=== PATIENT | female | born 1945 | race Caucasian/White ===

== ENCOUNTER 2016-09-18 11:23 | Observation (INO) | payer MEDICARE ==
--- NOTE | ~2016-09-18 | CR72 ---
[facility] A Service of [facility] RADIOLOGY TEXT RESULTS PATIENT: PHUONG PORRAS LOCATION: C3A 328-01 : 44 UNIT #: [id number] AGE: [address]: Aileen Blevins MD SEX: F ORDER DR: [id number] [address] [address] [id number] E MR#: [id number] Acc #: [id number] NAME: PHUONG PORRAS : 1945 SEX: F STUDY DATE/TIME: 09/18/2016 11:43 UNIT: SED ROOM: STUDY DESCRIPTION: CR Chest Single View Portable Attending Physician: Severiano Art M.D. Ordering Physician: Severiano Art M.D. Primary Care Physician: Tonio Sullivan M.D. MEDICAL IMAGING REPORT This report is preliminary unless electronic signature is present. EXAM Portable chest radiograph INDICATIONS Shortness of breath for 2 weeks. Patient has been a smoker for 45 years. FINDINGS Cardiomegaly is identified although there is no evidence of vascular congestion. There are background changes of COPD and with some bibasilar scarring. No pneumothorax or definite pleural effusion is seen. No definite acute infiltrates are identified Dictated by... Lindsey Xiao M.D. THIS IS AN ELECTRONICALLY VERIFIED REPORT Lindsey Xiao M.D. at 09/19/2016 12:58 PM AFF/rnr TD: 09/18/2016 13:45 JOB #: [id number] MEDICAL IMAGING REPORT Page 1 of 1
--- NOTE | ~2016-09-18 | CO ---
Unit #: [id number] #: [id number] Patient: PHUONG PORRAS [id number] [address] [place], [place] [address] [id number] I MR#: [id number] NAME: PHUONG PORRAS ROOM: 328 Age: 71 Sex: F Admission Date: 09/18/2016 : 1945 Attending Physician: Aileen Blevins M.D. Primary Care Physician: Tonio Sullivan M.D. CONSULTATION REPORT REASON FOR CONSULTATION Dyspnea on exertion. HISTORY OF PRESENT ILLNESS This is a 71-year-old white female, who presented to the emergency room with a complaint of shortness of breath that has been on exertion for a while, but worsened in the last two weeks. She denies paroxysmal nocturnal dyspnea, orthopnea, or leg edema. She has no symptoms of angina, palpitations, or dizziness. In the emergency room, she was hypertensive with blood pressure of 209/88 mmHg. She has been told to have hypertension, but was not on medications. She gives a history of myocardial infarction 25 years ago and states she underwent a cardiac catheterization and was told she had 30% blockage. She had a stress test approximately a year ago at [facility], which she says was normal. She saw Dr. Goff at that time and he said no further workup was needed. Troponin was negative with no acute ischemic changes on EKG. There was a mild elevation of D-dimer; however, CT angio of the chest showed no pulmonary embolism. There was an incidental finding of a left thyroid nodule. PAST MEDICAL HISTORY 1. The patient reported myocardial infarction 25 years ago with history of cardiac catheterization. Told to have 30% blockage. No details available. 2. Stress test a year ago at [facility]. Told negative. No details available. 3. Hypertension. 4. Hyperlipidemia. 5. Hypothyroidism. 6. Former smoker. 7. Obesity. PAST SURGICAL HISTORY Right lower extremity surgery with herbert placement secondary to fracture. SOCIAL HISTORY The patient lives at home alone. She previously smoked a pack and a half of cigarettes daily since age 12, but stopped a year ago. She denies illicit drug or alcohol use. Activity level is fair. FAMILY HISTORY Negative for coronary artery disease. Unit #: [id number] #: [id number] Patient: PHUONG PORRAS ALLERGIES No known drug allergies. HOME MEDICATIONS Levothyroxine 88 mcg daily. REVIEW OF SYSTEMS CONSTITUTIONAL: Negative for fever or chills. Reports no weight gain or weight loss. HEENT: No headache. No vision change or difficulty with swallowing. No dizziness. CARDIOVASCULAR: Has no symptoms of angina. Unaware of palpitations. No paroxysmal nocturnal dyspnea or orthopnea. Denies syncope or near syncope. RESPIRATORY: Positive for dyspnea on exertion. Denies cough or hemoptysis. GASTROINTESTINAL: No abdominal pain, nausea, or vomiting. No constipation. No melena. EXTREMITIES: Negative for lower extremity edema. PHYSICAL EXAMINATION VITAL SIGNS: Blood pressure 165/56, heart rate 81, temperature 97.1. GENERAL: This is a 71-year-old obese white female, who is in no acute respiratory distress. NEUROLOGIC: She is awake, alert, and oriented without focal weaknesses. NECK: Trachea is midline. No thyromegaly or lymphadenopathy. No jugular venous distention. HEART: S1 and S2. Heart sounds are normal. No murmurs. No rubs. No clicks. Regular rate and rhythm. LUNGS: Diminished breath sounds without rales, rhonchi, or wheezing. ABDOMEN: Soft and obese with bowel sounds are present. No masses appreciated. EXTREMITIES: Without leg edema. SKIN: Warm and dry. DIAGNOSTIC STUDIES LABORATORY RESULTS: Glucose 94, BUN 16, creatinine 0.7. Sodium 140, potassium 4.3. BNP 61. Troponin less than 0.05 x2 and less than 0.03. Cholesterol 191, triglycerides 56, LDL 123, HDL 57, TSH 1.14. D-dimer 254. White count is 10.0, hemoglobin 13.7, hematocrit 41.2, platelet count is 351. IMAGING STUDIES: Chest x-ray shows background changes of COPD. There is some bibasilar scarring. CT angio of the chest reveals a 3.0 x 2.6 cm low-density nodule in the left superior mediastinum noted to arise from the lower pole of the atrophic thyroid gland. No pulmonary embolism. Lungs are clear. CARDIOVASCULAR STUDIES: EKG; normal sinus rhythm, rate of 79 beats per minute. Otherwise, normal. IMPRESSION 1. Dyspnea on exertion, questionable etiology. 2. Uncontrolled hypertension. 3. The patient reported myocardial infarction with nonobstructive coronary artery disease 25 years ago. No details available. Recent stress test normal according to the patient. 4. Obesity. Unit #: [id number] #: [id number] Patient: PHUONG PORRAS 5. Hypothyroidism. PLAN 1. Cardiology was consulted for dyspnea on exertion. There was no cardiac cause of dyspnea. Dyspnea could be from uncontrolled hypertension. 2. We will start the patient on furosemide in addition to Norvasc for blood pressure control. 3. Obtain 2D echocardiogram to evaluate left ventricular systolic function. 4. Proceed with Lexiscan Cardiolite stress test to rule out coronary artery disease. Thank you for allowing us to assist in this patient's care. Dictated by... Joe UptonRMargarito for Tian Linton/luiza TD: 09/20/2016 03:00 JOB #: [id number] CONSULTATION REPORT Page 1 of 1 X Srikanth Osei APRN X CONSULTATION REPORT
--- NOTE | ~2016-09-18 | ST ---
Unit #: [id number] #: [id number] Patient: PHUONG PORRAS [id number] [address] [address] [id number] I MR#: [id number] NAME: PHUONG PORRAS : 1945 SEX: F STUDY DATE/TIME: UNIT: C3A PCU ROOM: [facility] STUDY DESCRIPTION: Stress Test Attending Physician: Aileen Blevins M.D. Primary Care Physician: Con Sullivan CARDIOLOGY REPORT EXAM Lexiscan Cardiolite Stress Test DESCRIPTION Baseline EKG - normal sinus rhythm with left atrial abnormality, possible Q waves in V1-2, slow R wave progression. Lexiscan was a four minute test with Lexiscan being injected within the first minute followed by Cardiolite. EKG during the test was equivocal to baseline. No acute ischemic changes. The patient had no complaints of chest pain, palpitations or dizziness. Had increased shortness of breath and fatigueness that resolved in recovery phase. Maximum heart rate response was 86 beats per minute with a maximum blood pressure response of 185/79 mmHg. It was noted at the end of recovery phase the patient's blood pressure was 167/70 mmHg. Cardiolite was injected after Lexiscan within the first minute of the test. Radionuclide test pending. Please correlate with nuclear images. Dictated by... Akanksha Gallardo A.P.R.N. for Tian Linton/juan jose TD: 09/19/2016 13:18 JOB #: [id number] Unit #: [id number] #: [id number] Patient: PHUONG PORRAS CARDIOLOGY REPORT Page 1 of 1 X Akanksha Gallardo APRN CARDIOLOGY REPORT
--- NOTE | ~2016-09-18 | HP ---
Unit #: [id number] #: [id number] Patient: PHUONG PORRAS [id number] [address] [place], [place] [address] [id number] I MR#: [id number] NAME: PHUONG PORRAS ROOM: 328 Age: 71 Sex: F Admission Date: 09/18/2016 : 1945 Attending Physician: Radhika Chou M.D. Primary Care Physician: Con Sullivan HISTORY AND PHYSICAL CHIEF COMPLAINT Dyspnea on exertion, decreased energy, accelerated hypertension. HISTORY OF PRESENT ILLNESS This pleasant 71-year-old female with hypertension, hypothyroidism, hyperlipidemia, was transferred from [facility] Emergency Department for dyspnea on exertion. The patient states that she has been short of breath for some time but this worsened over the past two weeks. Over the past two weeks, she notes increasing dyspnea on exertion with decreasing energy and perhaps some exertional lightheadedness. Denies chest discomfort, cough, wheezing with the above. She presented to [facility] Emergency Department today where her workup was fairly unremarkable. She states that she had cardiac testing performed about a year ago at [facility] which was unremarkable. She was a smoker up to 1-1/2 packs per day of tobacco from age 12 until last year when she stopped smoking. PAST MEDICAL HISTORY 1. Hypertension. 2. Hypothyroidism. 3. Hyperlipidemia. 4. Reported GA 25 years ago although patient believes there is only minor stenosis on cardiac catheterization. Again, she underwent cardiac testing at [facility] which was reportedly negative. ALLERGIES None. HOME MEDICATIONS 1. Synthroid 0.088 mg daily. 2. Patient was taking lisinopril 40 mg daily but had side effects along with a second blood pressure medicine and cholesterol medicine which she has since discontinued. SOCIAL HISTORY The patient lives alone. She smoked 1-1/2 packs per day from age 12 until a year ago when she stopped smoking. Does not drink alcohol. FAMILY HISTORY Possible CAD. REVIEW OF SYSTEMS Unit #: [id number] #: [id number] Patient: PHUONG PORRAS Notable for hypertension, hypothyroidism, hyperlipidemia, possible previous GA, exertional weakness and shortness of breath. Intermittent difficulty swallowing, umbilical hernia. All other systems were reviewed and are negative. PHYSICAL EXAMINATION VITAL SIGNS: Temperature 97.6, pulse 80, respirations 16, blood pressure 182/72, O2 saturation 97% on room air here. GENERAL: Pleasant, obese 71-year-old female currently in no acute distress. HEENT: Eyes PERRLA. Extraocular muscles are intact. Pharynx benign. NECK: Supple without adenopathy, thyromegaly or carotid bruits. No JVD. CHEST: Diminished breath sounds but clear. HEART: Normal S1, S2 without S3, S4 or murmur. ABDOMEN: Bowel sounds are present. No hepatosplenomegaly, tenderness or masses. However, there is a reducible umbilical hernia. EXTREMITIES: Minimal edema. Pedal pulses are diminished. NEUROLOGIC: Awake, alert, oriented. Cranial nerves are intact. She is a little bit hard of hearing. She has diminished vision out of the left eye. Equal strength throughout. DIAGNOSTIC STUDIES LABORATORY: Hematocrit 43.4, normal white count, platelet count and MCV. Negative cardiac markers. Mildly elevated D-dimer. SMA-12 normal. Normal BNP. IMAGING: Chest x-ray cardiomegaly. Background changes of COPD and bibasilar scarring. CTA negative for PE. 3 x 2.6 low density nodule in the left superior mediastinum thought to arise from the lower pole of the atrophic thyroid gland. Old granulomatous disease subcarinal left hilar region. Benign calcified granuloma in the left lower lobe. No acute disease. Left renal cyst also noted. CARDIOVASCULAR: EKG shows a normal sinus rhythm rate 79, normal appearing. ASSESSMENT 1. Dyspnea on exertion with diminished energy. Possibly this is in relationship to the patient's accelerated hypertension. She likely does have underlying COPD. Need to rule out cardiac etiology. 2. Likely underlying chronic obstructive pulmonary disease. 3. Accelerated hypertension off blood pressure medicines. 4. Hypothyroidism with likely thyroid nodule. Will need outpatient ultrasound. 5. History of hyperlipidemia. PLAN 1. Obtain recent cardiac testing at [facility]. 2. Dulera and Proventil inhalers were sent by [facility] and will go ahead and write for these. 3. Obtain TSH. Patient will need thyroid ultrasound as an outpatient. 4. Start Norvasc. May need to add back lower dose lisinopril. 5. Check lipid profile. 6. Low-dose aspirin. 7. Patient will need a physician at the time of discharge. 8. Further workup and consultants depending on above. Unit #: [id number] #: [id number] Patient: PHUONG PORRAS Dictated by Swati Pacheco M.D. AML/cs TD: 09/18/2016 22:25 JOB #: [id number] HISTORY AND PHYSICAL Page 1 of 1 X Swati Pacheco MD X HISTORY AND PHYSICAL
--- NOTE | ~2016-09-18 | EKG ---
PATIENT: PHUONG PORRAS UNIT #: [id number] Ventricular Rate: 79 BPM Atrial Rate: 79 BPM P-R Interval: 202 ms QRS Duration: 82 ms Q-T Interval: 396 ms QTC Calculation(Bezet): 454 ms P [place]: 69 degrees Calculated R [place]: 14 degrees Calculated T [place]: 63 degrees Diagnosis Line: Normal sinus rhythm Diagnosis Line: Normal ECG Diagnosis Line: No previous ECGs available Diagnosis Line: Confirmed by ARMAND GREENE MD ([id number]) on Diagnosis Line: 09/26/2016 7:15:39 AM INTERPRETING MD: HONEY
--- NOTE | ~2016-09-18 | TH ---
Unit #: [id number] #: [id number] Patient: PHUONG PORRAS [id number] [address] [address] [id number] I MR#: [id number] NAME: PHUONG PORRAS : 1945 SEX: F STUDY DATE/TIME: UNIT: C3A PCU ROOM: [facility] STUDY DESCRIPTION: Nuclear Study Attending Physician: Aileen Blevins M.D. Primary Care Physician: Con Sullivan CARDIOLOGY REPORT EXAM Lexiscan Cardiolite Stress Test - Nuclear Portion DESCRIPTION Using technetium 99m labeled Cardiolite, rest and stress SPECT images were obtained. Multiple SPECT images were obtained in various views including horizontal and vertical long axis and short axis views of the left ventricle. Images were obtained by gated SPECT method. The patient was administered 8.49 mCi of Cardiolite at rest. The patient was administered 27.9 mCi of Cardiolite after Lexiscan infusion was completed. On the stress images, there is mild small area of decreased isotope activity involving the anteroapical wall. The rest images also show a small area of mild decreased isotope activity anteroapically. Comparing rest and stress images, there is no stress-induced ischemia noted. There is a small area of predominantly fixed defect seen anteroapically, most likely due to breast tissue artifact. The left ventricular ejection fraction is calculated to be 77. There is no focal wall motion abnormality seen. CONCLUSION 1. No obvious stress-induced ischemia noted. 2. There is a small area of predominantly fixed defect seen anteroapically, most likely due to soft tissue artifact. 3. The left ventricular ejection fraction is calculated to be 77%. 4. There is no focal wall motion abnormality seen. 5. Normal Lexiscan Cardiolite stress test. 6. Technically limited study due to patient's body habitus. Clinical correlation is requested. 7. Suspicion for inferior and inferolateral myocardial infarction with no stress induced ischemia. Dictated by.Tian Nolan TD: 09/19/2016 13:22 Unit #: [id number] #: [id number] Patient: PHUONG PORRAS JOB #: [id number] CARDIOLOGY REPORT Page 1 of 1 X Merly Linares MD <ELECTRONICALLY SIGNED> 12/28/16 1429 CARDIOLOGY REPORT
--- NOTE | ~2016-09-18 | CT16 ---
[facility] A Service [facility] RADIOLOGY TEXT RESULTS PATIENT: PHUONG PORRAS LOCATION: C3A PC 328-01 : [birth year] UNIT #: [id number] AGE: [address]: Radhika Chou MD SEX: F ORDER DR: [id number] [address] [address] [id number] E MR#: [id number] Acc #: [id number] NAME: PHUONG PORRAS : 1945 SEX: F STUDY DATE/TIME: 09/18/2016 12:01 UNIT: SED ROOM: STUDY DESCRIPTION: CT Angio Chest for PE Attending Physician: Severiano Art M.D. Ordering Physician: Severiano Art M.D. Primary Care Physician: Con Sullivan MEDICAL IMAGING REPORT This report is preliminary unless electronic signature is present. EXAM CT angiography of the chest with contrast, pulmonary vessel protocol. DATE 09/18/2016 HISTORY Shortness of breath for 2 weeks. Elevated D-dimer level. 45-year smoking history. COMPARISON AP portable chest 09/18/2016 at 1143. PROCEDURE 2 mm axial images through the chest after IV contrast administration. 3-D coronal MIP reformatted images were obtained. This CT exam was performed with one or more of the following radiation dose reduction techniques: automatic exposure control, adjustment of mA and/or kV according to patient size, and iterative reconstruction. FINDINGS No pulmonary embolism. No thoracic aortic aneurysm or aortic dissection. Heart size within normal limits. Coronary artery calcifications are present. No pathologic adenopathy. Benign subcarinal and left hilar calcified nodes in keeping with old granulomatous disease. Benign calcified granuloma in the left lower lobe. 3.0 x 2.6 cm low-density nodule in the left superior mediastinum thought to arise from the lower pole of the atrophic thyroid gland. No acute airspace disease or bronchial wall thickening or bronchiectasis is identified. [facility] A Service [facility] RADIOLOGY TEXT RESULTS PATIENT: PHUONG PORRAS LOCATION: [facility] PC 328- : 43 UNIT #: [id number] AGE: [address]: Radhika Chou MD SEX: F ORDER DR: Gallbladder is mildly distended up to 4 cm transversely but does not appear appreciably thickened or inflamed and no biliary dilation is evident. Left renal parapelvic cyst is incidentally noted measuring approximately 3.7 cm. No acute osseous abnormalities are identified. IMPRESSION 1. No acute chest findings. No pulmonary embolism. No thoracic aortic aneurysm or dissection. Lungs are clear. 2. Mild coronary artery calcifications. 3. Left superior mediastinal nodule measuring up to 3 cm, though to arise from the left thyroid lobe. This can be correlated to thyroid ultrasound on a nonemergent basis if deemed clinically appropriate. 4. Left renal parapelvic cyst. 5. Benign calcified granulomatous changes in the chest. Dictated by... Cynthia Proctor M.D. THIS IS AN ELECTRONICALLY VERIFIED REPORT Cynthia Proctor M.D. at 09/19/2016 7:04 AM KERRI/josue TD: 09/18/2016 13:51 JOB #: [id number] MEDICAL IMAGING REPORT Page 1 of 1
[2016-09-18 11:16] LABS: BASOPHIL# 0.1 X10e3 (0-0.3); BASOPHIL% 1.4 % (0-2.5); EOSINOPHIL# 0.2 X10e3 (0-0.7); EOSINOPHIL% 2.4 % (0.0-7.0); HEMATOCRIT 43.4 % (35.0-45.0); HEMOGLOBIN 14.4 gm/dL (12.0-16.0); LYMPHOCYTE# 1.6 X10e3 (1.0-3.5); MEAN CELL VOLUME 87.2 FL (83-96); MEAN CORPUSCULAR HEMOGLOBIN 28.9 PG (28-34); MEAN CORPUSCULAR HGB CONC 33.2 g/dL (30-36); MEAN PLATELET VOLUME 7.3 FL (6.5-11.5); MONOCYTE# 0.6 X10e3 (0-1.0); MONOCYTE% 7.9 % (3.0-12.0); NEUTROPHIL% 67.3 % (40-75); PLATELET COUNT 351 X10e3 (140-420); RED BLOOD COUNT 4.98 X10e (3.90-5.30); RED CELL DISTRIBUTION WIDTH 14.6 % (11.0-15.5); WHITE BLOOD COUNT 7.5 X10e3 (4.0-10.5)
[2016-09-18 11:17] LABS: DIFF IND NO
[~2016-09-18 11:23] MED LIST: LEVOTHYROXINE100 MCG
[2016-09-18 11:27] LABS: ALBUMIN SERUM 3.9 g/dL (3.5-5.0); BILIRUBIN, DIRECT 0.2 mg/dL (0.0-0.2); BILIRUBIN,INDIRECT 0.9 mg/dL (0.0-0.9); BILIRUBIN,TOTAL 1.1 mg/dL (0.2-2.0); CREATININE SERUM 0.7 mg/dL (0.6-1.4); GLOM FILT RATE Estimated 86.6 mL/min (>60); POTASSIUM 4.1 mmol/L (3.5-5.1); PROTEIN TOTAL SERUM 7.6 g/dL (6.0-8.3)
[2016-09-18 11:34] LABS: POC - CKMB 1.1 ng/mL (0.0-7.9); POC - TROPONIN <0.05 ng/mL (<=0.05)
[2016-09-18 13:08] LABS: POC - CKMB <1.0 ng/mL (0.0-7.9); POC - TROPONIN <0.05 ng/mL (<=0.05)
[2016-09-19 06:24] LABS: HEMATOCRIT 41.2 % (35.0-45.0); HEMOGLOBIN 13.7 gm/dL (12.0-16.0); MEAN CELL VOLUME 86.7 FL (83-96); MEAN CORPUSCULAR HEMOGLOBIN 28.8 PG (28-34); MEAN CORPUSCULAR HGB CONC 33.3 g/dL (30-36); MEAN PLATELET VOLUME 7.2 FL (6.5-11.5); RED BLOOD COUNT 4.75 X10e (3.90-5.30); RED CELL DISTRIBUTION WIDTH 14.4 % (11.0-15.5)
[2016-09-19 06:49] LABS: INR 0.9; PARTIAL THROMBOPLASTIN TIME 26.8 SECONDS (23.5-31.3); PROTHROMBIN TIME (PATIENT) 9.8 SECONDS (9.6-11.5)
[2016-09-19 07:00] LABS: BUN/CREATININE RATIO 22.85; CALCIUM SERUM 9.3 mg/dL (8.4-10.2); CREATININE SERUM 0.7 mg/dL (0.6-1.4); GLOM FILT RATE Estimated 86.6 mL/min (>60); POTASSIUM 4.3 mmol/L (3.5-5.1)
[2016-09-19] MEDS ORDERED: AMLODIPINE BESYL5 MG PO (15:46)
[2016-09-19] MEDS ORDERED: FUROSEMIDE5 GM PO (15:47)
[2016-09-19] MEDS ORDERED: ASPIRIN1 GM PO (15:48)
[2016-09-19] MEDS ORDERED: KCL 10 MEQ20 MEQ/100 PO (15:50)
[2016-09-19] MEDS ORDERED: METOPROLOL ER-1 EAC1 PO (15:50)
[2016-09-19] MEDS ORDERED: NORVASC2.5 MG PO (15:52)
[2016-09-19] MEDS ORDERED: ALBUTEROL SULFAT8 MG INH (15:56)
[2016-09-19] MEDS ORDERED: METOPROLOL TAR25 MG PO (16:12)
== END 2016-09-19 16:40 | disposition home or self-care (01) ==
LOC: SED 11:23 → CEDOF 13:29 → C3A PCU 18:56
PROVIDERS: Emergency Medicine; Internal Medicine
DX: I25.10 Atherosclerotic heart disease of native coronary artery without angina pectoris (principal); R06.00 Dyspnea, unspecified; I10 Essential (primary) hypertension; Z87.891 Personal history of nicotine dependence; I25.2 Old myocardial infarction; E66.9 Obesity, unspecified; Z23 Encounter for immunization; E03.9 Hypothyroidism, unspecified; N28.1 Cyst of kidney, acquired
CPT/HCPCS: 36415; 71010; 71275; 78452; 80048; 80061; 80076; 82553; 83880; 84443; 84484; 85025; 85027; 85379; 85610; 85730; 90732; 93005; 93017; 93306; 94640; 94760; 99285; A9500; G0009; G0378; J2785; Q9967